=== PATIENT | male | born 1985 | race Two or more races ===

== ENCOUNTER → 2018-01-19 | Emergency (ER) | payer OTHER ==
[~2018-01-19] VITALS: Ht 172.7 cm; Wt 81.6 kg
[~2018-01-19] MED LIST: AMOX1TAB5; CORTISPORIN EAR10 M1 OT
== END | disposition home or self-care (01) ==
LOC: ER 10:25
DX: H92.02 Otalgia, left ear (principal)

== ENCOUNTER 2018-01-23 14:32 | Emergency (ER) | payer OTHER ==
[~2018-01-23] VITALS: Ht 182.9 cm; Wt 104.3 kg
== END 2018-01-23 18:08 | disposition home or self-care (01) ==
LOC: ER 14:32
DX: J32.8 Other chronic sinusitis (principal); H66.92 Otitis media, unspecified, left ear

== ENCOUNTER 2018-07-30 11:15 | Emergency (ER) | payer OTHER ==
[~2018-07-30] VITALS: Ht 185.4 cm; Wt 90.7 kg
== END 2018-07-30 13:20 | disposition home or self-care (01) ==
LOC: ER 11:15
DX: H65.192 Other acute nonsuppurative otitis media, left ear (principal)